=== PATIENT | female | born 1995 | race American Indian/Alaskan Native ===

== ENCOUNTER 2020-08-08 07:22 | Inpatient (IN) | payer MEDICAID, OTHER ==
[2020-08-08 08:03] LABS: Basophils # (Auto) 0.1 K/mm3 (0.0-0.1); Basophils % (Auto) 0.9 % (0.0-1.8); Eosinophils # (Auto) 0.2 K/mm3 (0.0-0.4); Eosinophils % (Auto) 1.6 % (0.0-4.3); Hematocrit 32.5 % (30.3-42.9); Hemoglobin 11.1 gm/dl (10.1-14.3); Lymphocytes # (Auto) 3.6 K/mm3 (1.2-5.4); Lymphocytes % (Auto) 29.7 % (13.4-35.0); Mean Corpuscular HGB Conc 34 % (30-34); Mean Corpuscular Volume 95 fl (79-97); Monocytes % (Auto) 8.1 % (0.0-7.3); Platelet Count 642 K/mm3 (140-440); Red Blood Count 3.44 M/mm3 (3.65-5.03); Red Cell Distribution Width 13.6 % (13.2-15.2)
[2020-08-08 08:23] LABS: Alanine Aminotransferase 13 units/L (7-56); Albumin 3.2 g/dL (3.9-5); Blood Urea Nitrogen 8 mg/dL (7-17); Calcium 8.7 mg/dL (8.4-10.2); Hemolysis Index 0
[2020-08-08 08:24] LABS: BUN/Creatinine Ratio 13
--- NOTE | 2020-08-08 08:58 | XRay Report ---
CHEST 2 VIEWS INDICATION / CLINICAL INFORMATION: chest pain. COMPARISON: None available. FINDINGS: SUPPORT DEVICES: None. HEART / MEDIASTINUM: No significant abnormality. LUNGS / PLEURA: Moderate right pleural parenchymal opacification at the lung bases. The left lung fie ld is clear. No pneumothorax. ADDITIONAL FINDINGS: No significant additional findings. IMPRESSION: 1. Moderate right-sided pleural effusion and associated compressive atelectasis. The left lung field is clear. Signer Name: Roque Swartz MD Signed: 08/08/2020 8:53 AM Workstation Name: [id number]
[2020-08-08] MEDS ORDERED: MORPHINE 4 MG/1 ML INJ IV ONE (09:18)
[2020-08-08] MEDS ORDERED: SODIUM CHLORIDE 0.9% 1000 ML 1,000 ML IV ONE (09:18)
[2020-08-08] MEDS ORDERED: ONDANSETRON 4 MG/2 ML INJ IV ONE (09:19)
[2020-08-08 10:08] LABS: Partial Thromboplastin Time 28.5 Sec. (24.2-36.6)
--- NOTE | 2020-08-08 11:15 | Cat Scan Report ---
CTA CHEST WITH CONTRAST INDICATION / CLINICAL INFORMATION: CP with SOB. TECHNIQUE: Axial CT images were obtained through the chest after injection of IV contrast. 3 plane MIP and/or 3D reconstructions were produced. All CT scans at this location are performed using CT dose reduction f or ALARA by means of automated exposure control. COMPARISON: Prior chest radiograph 08/08/2020. No prior CT chest. FINDINGS: PULMONARY ARTERIES: No pulmonary emboli. THORACIC AORTA: No significant abnormality. HEART: No significant abnormality. CORONARY ARTERIES: No significant calcification. MEDIASTINUM / SUMA: No significant abnormality. LUNGS/PLEURA: Moderate right pleural effusion with associated compressive atelectasis of the right priti ng base. There is a peripherally enhancing well-circumscribed air-fluid collection in the right lung base measuring 3 cm (series 3 image 314). Additional small consolidation with air bronchograms are no inessa in the anterior aspect of the right upper and middle lobes. No pneumothorax. ADDITIONAL FINDINGS: None. UPPER ABDOMEN: No acute findings. SKELETAL STRUCTURES: No significant osseous abnormality. No aggressive osseous lesions. IMPRESSION: 1. No CT evidence for pulmonary embolism. 2. Consolidations with air bronchograms in the anterior aspect of the right middle and upperadditiona l lobes, likely atelectasis. Well-circumscribed peripheral enhancing air-fluid collection at the righ t lung base measuring 3 cm concerning for empyema versus loculation of the pleural effusion. Correlat ion with lab values to exclude infection is recommended. 3. Moderate right pleural effusion and associated compressive atelectasis. Signer Name: Roque Swartz MD Signed: 08/08/2020 11:11 AM Workstation Name: [email or web address]
[2020-08-08] MEDS ORDERED: cefTRIAXone/NS 1 GM/50 ML 1 GM/50 ML BAG IV ONE (11:22)
[2020-08-08] MEDS ORDERED: VANCOMYCIN PHARMACY TO DOSE IV SCH (12:00)
--- NOTE | 2020-08-08 12:06 | Emergency Department Report ---
ED Chest Pain HPI - General Chief Complaint: Chest Pain Stated Complaint: SOB/ CHEST PAINS Time Seen by Provider: 08/08/20 08:55 Source: patient Mode of arrival: Stretcher Limitations: No Limitations - History of Present Illness Initial Comments: This is a 24-year-old female nontoxic, well nourished in appearance, no acute signs of distress presents to the ED with c/o of right sided chest pain and shortness of breath times several days. Patient stated has some radiation of pain to right sided back. Describes pain as sharp and aching. Worse with deep breaths. Patient stated has some nonproductive cough. Patient denies any hemoptysis, fever, chills, nausea, vomiting, headache, stiff neck, numbness, tingling, abdominal pain. Patient denies any recent travels or long car rides. Patient denies any recent surgeries or any sick contacts. Patient denies any drug allergies. Patient denies any significant past medical history. Patient denies taking contraceptives. MD Complaint: chest pain -: days(s) Pain Location: right chest Pain Radiation: none Severity: mild Severity scale (0 -10): 8 Quality: aching, sharp Consistency: constant Improves With: nothing Worsens With: nothing re: denies: nausea, vomting, diaphoresis, dyspnea, sense of impending doom Other Symptoms: cough. denies: fever, syncope, rash, acid taste in mouth, leg swelling, palpitations, burping Treatments Prior to Arrival: none Aspirin use within the Past 7 Days: (0) No - Related Data Home Medications Medication Instructions Recorded Confirmed Last Taken Pnv with Ca,No.72/Iron/FA 1 tab PO DAILY 09/21/13 09/21/13 09/20/13 13:00 [ Plus Tablet] 1 tab Previous Rx's Medication Instructions Recorded Last Taken Type Ferrous Sulfate [Feosol 325 MG tab] 325 mg PO TID #90 tablet 09/21/13 Unknown Rx Ibuprofen [Motrin 800 MG tab] 800 mg PO Q8H PRN #90 tablet 09/21/13 Unknown Rx Ondansetron [Zofran] 4 mg PO Q6HR PRN #20 tablet 08/27/14 Unknown Rx oxyCODONE /ACETAMINOPHEN [Percocet 1 tab PO Q6HR PRN #30 tablet 08/27/14 Unknown Rx 5/325 mg] Allergies Allergy/AdvReac Type Severity Reaction Status Date / Time No Known Allergies Allergy Verified 09/09/13 13:18 Heart Score - HEART Score History: Slightly suspicious EKG: Normal Age: < 45 Risk factors: No known risk factors Troponin: < normal limit HEART Score: 0 - EKG Read Time Time EKG Completed: 00:00 (see EKG ) EKG Read Time: 00:00 (see EKG ) ED Review of Systems ROS: Stated complaint: SOB/ CHEST PAINS Other details as noted in HPI Comment: All other systems reviewed and negative Constitutional: denies: chills, fever Eyes: denies: eye pain, eye discharge, vision change ENT: denies: ear pain, throat pain Respiratory: shortness of breath. denies: cough, wheezing Cardiovascular: chest pain. denies: palpitations, dyspnea on exertion, orthopnea, edema, syncope, paroxysmal nocturnal dyspnea Endocrine: no symptoms reported Gastrointestinal: denies: abdominal pain, nausea, diarrhea Genitourinary: denies: urgency, dysuria, discharge Musculoskeletal: denies: back pain, joint swelling, arthralgia Skin: denies: rash, lesions Neurological: denies: headache, weakness, paresthesias Psychiatric: denies: anxiety, depression Hematological/Lymphatic: denies: easy bleeding, easy bruising ED Past Medical Hx - Past Medical History Hx Hypertension: No Hx Congestive Heart Failure: No Hx Diabetes: No Hx Deep Vein Thrombosis: No Hx Renal Disease: No Hx Sickle Cell Disease: No Hx Seizures: No Hx Asthma: No Hx COPD: No Hx HIV: No - Surgical History Past Surgical History?: Yes Additional Surgical History: - Social History Smoking Status: Former Smoker Substance Use Type: Alcohol - Medications Home Medications: Home Medications Medication Instructions Recorded Confirmed Last Taken Type Ferrous Sulfate [Feosol 325 MG tab] 325 mg PO TID #90 tablet 09/21/13 Unknown Rx Ibuprofen [Motrin 800 MG tab] 800 mg PO Q8H PRN #90 tablet 09/21/13 Unknown Rx Pnv with Ca,No.72/Iron/FA 1 tab PO DAILY 09/21/13 09/21/13 09/20/13 13:00 History [ Plus Tablet] 1 tab Ondansetron [Zofran] 4 mg PO Q6HR PRN #20 tablet 08/27/14 Unknown Rx oxyCODONE /ACETAMINOPHEN [Percocet 1 tab PO Q6HR PRN #30 tablet 08/27/14 Unknown Rx 5/325 mg] ED Physical Exam - General Limitations: No Limitations General appearance: alert, in no apparent distress - Head Head exam: Present: atraumatic, normocephalic - Eye Eye exam: Present: normal appearance - Neck Neck exam: Present: normal inspection, full ROM. Absent: tenderness, meningismus, lymphadenopathy - Respiratory Respiratory exam: Present: decreased breath sounds (right lower lobe). Absent: respiratory distress, wheezes, rales, rhonchi, stridor, chest wall tenderness, accessory muscle use, prolonged expiratory - Cardiovascular Cardiovascular Exam: Present: regular rate, normal rhythm, tachycardia, normal heart sounds. Absent: irregular rhythm, systolic murmur, diastolic murmur, rubs, gallop - GI/Abdominal GI/Abdominal exam: Present: soft, normal bowel sounds. Absent: distended, tenderness, guarding, rebound, rigid, diminished bowel sounds - Extremities Exam Extremities exam: Present: normal inspection, full ROM - Back Exam Back exam: Present: normal inspection, full ROM. Absent: tenderness, CVA tenderness (R), CVA tenderness (L), muscle spasm, paraspinal tenderness, vertebral tenderness, rash noted - Neurological Exam Neurological exam: Present: alert, oriented X3, normal gait - Psychiatric Psychiatric exam: Present: normal affect, normal mood - Skin Skin exam: Present: warm, dry, intact, normal color. Absent: rash ED Course Vital Signs 08/08/20 08/08/20 08/08/20 07:27 09:59 11:43 Temperature 97.6 F 98.8 F Pulse Rate 103 H 104 H Respiratory 25 H 18 18 Rate Blood Pressure 159/75 121/78 O2 Sat by Pulse 96 93 Oximetry - Reevaluation(s) Reevaluation #1: 08/08/20 12:08 Patient is speaking in full sentences with no signs of distress noted. - Consultations Consultation #1: 08/08/20 12:08 Patient has been consulted with Brando Pickard about patient history, physical exam, and labs/imaging results and agrees to the ED plan of care with admission. Awaiting for Pulomnologist consult. Consultation #2: 08/08/20 13:08 Patient has been consulted with Dr. Gibbons by Dr. Wong about patient history, physical exam, and labs/imaging results and accepts patient to services. JUSTINA score - Justina Score Age > 65: (0) No Aspirin use within the Past 7 Days: (0) No 3 or more CAD Risk Factors: (0) No 2 or more Angina events in past 24 hrs: (0) No Known CAD with more than 50% Stenosis: (0) No Elevated Cardiac Markers: (0) No ST Deviation Greater than 0.5mm: (0) No JUSTINA Score: 0 ED Medical Decision Making - Lab Data Result diagrams: 08/08/20 07:40 08/08/20 07:40 Lab Results 08/08/20 08/08/20 08/08/20 Range/Units 07:40 07:40 07:40 WBC 12.2 H (4.5-11.0) K/mm3 RBC 3.44 L (3.65-5.03) M/mm3 Hgb 11.1 (10.1-14.3) gm/dl Hct 32.5 (30.3-42.9) % MCV 95 (79-97) fl MCH 32 (28-32) pg MCHC 34 (30-34) % RDW 13.6 (13.2-15.2) % Plt Count 642 H (140-440) K/mm3 Lymph % (Auto) 29.7 (13.4-35.0) % [place] % (Auto) 8.1 H (0.0-7.3) % Eos % (Auto) 1.6 (0.0-4.3) % Baso % (Auto) 0.9 (0.0-1.8) % Lymph # (Auto) 3.6 (1.2-5.4) K/mm3 [place] # (Auto) 1.0 H (0.0-0.8) K/mm3 Eos # (Auto) 0.2 (0.0-0.4) K/mm3 Baso # (Auto) 0.1 (0.0-0.1) K/mm3 Seg Neutrophils % 59.7 (40.0-70.0) % Seg Neutrophils # 7.3 (1.8-7.7) K/mm3 PT (12.2-14.9) Sec. INR (0.87-1.13) APTT (24.2-36.6) Sec. D-Dimer (0-234) ng/mlDDU Sodium 140 (137-145) mmol/L Potassium 3.9 (3.6-5.0) mmol/L Chloride 103.1 (98-107) mmol/L Carbon Dioxide 27 (22-30) mmol/L Anion Gap 14 mmol/L BUN 8 (7-17) mg/dL Creatinine 0.6 (0.6-1.2) mg/dL Estimated GFR > 60 ml/min BUN/Creatinine Ratio 13 % Glucose 143 H (65-100) mg/dL Lactic Acid (0.7-2.0) mmol/L Calcium 8.7 (8.4-10.2) mg/dL Magnesium (1.7-2.3) mg/dL Total Bilirubin 0.30 (0.1-1.2) mg/dL AST 16 (5-40) units/L ALT 13 (7-56) units/L Alkaline Phosphatase 71 (35-129) units/L Troponin T < 0.010 (0.00-0.029) ng/mL Total Protein 7.5 (6.3-8.2) g/dL Albumin 3.2 L (3.9-5) g/dL Albumin/Globulin Ratio 0.7 % HCG, Qual Negative (Negative) Urine Bilirubin (Negative) Urine RBC (Auto) (0.0-6.0) /HPF U Epithel Cells (Auto) (0-13.0) /HPF 08/08/20 08/08/20 08/08/20 Range/Units 09:38 09:38 11:30 WBC (4.5-11.0) K/mm3 RBC (3.65-5.03) M/mm3 Hgb (10.1-14.3) gm/dl Hct (30.3-42.9) % MCV (79-97) fl MCH (28-32) pg MCHC (30-34) % RDW (13.2-15.2) % Plt Count (140-440) K/mm3 Lymph % (Auto) (13.4-35.0) % [place] % (Auto) (0.0-7.3) % Eos % (Auto) (0.0-4.3) % Baso % (Auto) (0.0-1.8) % Lymph # (Auto) (1.2-5.4) K/mm3 [place] # (Auto) (0.0-0.8) K/mm3 Eos # (Auto) (0.0-0.4) K/mm3 Baso # (Auto) (0.0-0.1) K/mm3 Seg Neutrophils % (40.0-70.0) % Seg Neutrophils # (1.8-7.7) K/mm3 PT 13.1 (12.2-14.9) Sec. INR 1.00 (0.87-1.13) APTT 28.5 (24.2-36.6) Sec. D-Dimer 1888.67 H (0-234) ng/mlDDU Sodium (137-145) mmol/L Potassium (3.6-5.0) mmol/L Chloride (98-107) mmol/L Carbon Dioxide (22-30) mmol/L Anion Gap mmol/L BUN (7-17) mg/dL Creatinine (0.6-1.2) mg/dL Estimated GFR ml/min BUN/Creatinine Ratio % Glucose (65-100) mg/dL Lactic Acid 1.10 (0.7-2.0) mmol/L Calcium (8.4-10.2) mg/dL Magnesium 1.40 L (1.7-2.3) mg/dL Total Bilirubin (0.1-1.2) mg/dL AST (5-40) units/L ALT (7-56) units/L Alkaline Phosphatase (35-129) units/L Troponin T < 0.010 (0.00-0.029) ng/mL Total Protein (6.3-8.2) g/dL Albumin (3.9-5) g/dL Albumin/Globulin Ratio % HCG, Qual (Negative) Urine Bilirubin (Negative) Urine RBC (Auto) (0.0-6.0) /HPF U Epithel Cells (Auto) (0-13.0) /HPF 08/08/20 08/08/20 Range/Units 11:36 12:37 WBC (4.5-11.0) K/mm3 RBC (3.65-5.03) M/mm3 Hgb (10.1-14.3) gm/dl Hct (30.3-42.9) % MCV (79-97) fl MCH (28-32) pg MCHC (30-34) % RDW (13.2-15.2) % Plt Count (140-440) K/mm3 Lymph % (Auto) (13.4-35.0) % [place] % (Auto) (0.0-7.3) % Eos % (Auto) (0.0-4.3) % Baso % (Auto) (0.0-1.8) % Lymph # (Auto) (1.2-5.4) K/mm3 [place] # (Auto) (0.0-0.8) K/mm3 Eos # (Auto) (0.0-0.4) K/mm3 Baso # (Auto) (0.0-0.1) K/mm3 Seg Neutrophils % (40.0-70.0) % Seg Neutrophils # (1.8-7.7) K/mm3 PT (12.2-14.9) Sec. INR (0.87-1.13) APTT (24.2-36.6) Sec. D-Dimer (0-234) ng/mlDDU Sodium (137-145) mmol/L Potassium (3.6-5.0) mmol/L Chloride (98-107) mmol/L Carbon Dioxide (22-30) mmol/L Anion Gap mmol/L BUN (7-17) mg/dL Creatinine (0.6-1.2) mg/dL Estimated GFR ml/min BUN/Creatinine Ratio % Glucose (65-100) mg/dL Lactic Acid (0.7-2.0) mmol/L Calcium (8.4-10.2) mg/dL Magnesium (1.7-2.3) mg/dL Total Bilirubin (0.1-1.2) mg/dL AST (5-40) units/L ALT (7-56) units/L Alkaline Phosphatase (35-129) units/L Troponin T < 0.010 (0.00-0.029) ng/mL Total Protein (6.3-8.2) g/dL Albumin (3.9-5) g/dL Albumin/Globulin Ratio % HCG, Qual (Negative) Urine Bilirubin Neg (Negative) Urine RBC (Auto) 2.0 (0.0-6.0) /HPF U Epithel Cells (Auto) 10.0 (0-13.0) /HPF - EKG Data 08/08/20 13:09 Sinus rhythm at 93 bpm. Ventricular premature complex. No significant T or ST abnormalities. Reviewed and signed by . - Radiology Data 24-year-old female that presents with right pleural effusion. Patient is currently stable and was examined by me. Patient consulted with my attending and admitted with hospitalist for further elevation treatment. Diagnostic tests has been obtained. Patient is notified of the results with no questions noted by the patient. Vital signs are stable currently. At time of admission, the patient does not seem toxic or ill in appearance. No acute signs of distress noted. Patient agrees to admission treatment plan of care. No further qu estions noted by the patient. Critical care attestation.: If time is entered above; I have spent that time in minutes in the direct care of this critically ill patient, excluding procedure time. ED Disposition Clinical Impression: Pleural effusion, right Disposition: DC-09 OP ADMIT IP TO THIS HOSP Is pt being admited?: Yes Condition: Stable
[2020-08-08] MEDS: VANCOMYCIN 1,500 MG in SODIUM CHLORIDE 0.9% 500 ML 500 ML IV SCH ×2 (12:51→23:15)
[2020-08-08 13:04] LABS: Bilirubin,Urine NEG (Negative); Blood,Urine NEG (Negative); Color,Urine Yellow (Yellow); Mucus,Urine FEW /HPF; Protein,Urine <15 mg/dL mg/dL (Negative); Urobilinogen,Urine < 2.0 mg/dL (<2.0)
[2020-08-08 13:13] LABS: Amphetamine Screen,Urine Negative; Benzodiazepines Screen,Urine Negative; Cocaine Screen,Urine Negative; Methadone Screen,Urine Negative
--- NOTE | 2020-08-08 13:21 | History and Physical Report ---
History of Present Illness Chief complaint: My chest feels tight History of present illness: 24 YO Female with Anemia presents to ED for evaluation. Patient reports "my chest feels tight". Patient states that she has experienced shortness of breath and chest discomfort over the past 5 days with persistent symptoms over the same timeframe. Patient reports mild chest pain which radiates to the right back. Patient reports pain is worsened with deep breathing. Patient knowledges dry cough. Patient transported to [facility] via private vehicle for further care and evaluation of the aforementioned symptoms. The patient was seen and evaluated in the emergency department. All lab and imaging studies reviewed. Patient underwent chest x-ray as well as CT scan of the chest which showed evidence of a right lower lobe pneumonia complicated by right pleural effusion and possible empyema as well as systemic inflammatory response syndrome. Patient admitted to medical floor and initiated on pneumonia protocol and treated with IV antibiotic therapy. Pulmonary team consulted in ED. Patient denies fever, chills, chest pain, palpitation, productive cough, skin rash, recent ill contacts, unilateral leg swelling, calf pain, individual/family history of DVT/PE/bleeding/blood clotting disorders, or known exposure to COVID-19. No prior admission for review. All medication listed at time of admission has been reconciled. Past History Past Medical History: other (See HPI) Past Surgical History: Social history: single Family history: hypertension Medications and Allergies Allergies Allergy/AdvReac Type Severity Reaction Status Date / Time No Known Allergies Allergy Verified 09/09/13 13:18 Home Medications Medication Instructions Recorded Confirmed Last Taken Type Ferrous Sulfate [Feosol 325 MG tab] 325 mg PO TID #90 tablet 09/21/13 Unknown Rx Ibuprofen [Motrin 800 MG tab] 800 mg PO Q8H PRN #90 tablet 09/21/13 Unknown Rx Pnv with Ca,No.72/Iron/FA 1 tab PO DAILY 09/21/13 09/21/13 09/20/13 13:00 History [ Plus Tablet] 1 tab Ondansetron [Zofran] 4 mg PO Q6HR PRN #20 tablet 08/27/14 Unknown Rx oxyCODONE /ACETAMINOPHEN [Percocet 1 tab PO Q6HR PRN #30 tablet 08/27/14 Unkn own Rx 5/325 mg] Active Meds: Active Medications Vancomycin HCl 1,500 mg/ (Sodium Chloride) 530 mls @ 265 mls/hr IV Q12H [facility] Last Admin: 08/08/20 12:51 Dose: 265 mls/hr Documented by: Review of Systems Constitutional: weakness, no weight loss, no weight gain, no fever, no chills Ears, nose, mouth and throat: no ear pain, no ear discharge, no tinnitis, no decreased hearing, no nose pain, no nasal congestion Breasts: no change in shape, no swelling, no mass Cardiovascular: no orthopnea, no palpitations, no rapid/irregular heart beat, no edema Respiratory: cough, shortness of breath, pain on inspiration Gastrointestinal: no abdominal pain, no nausea, no diarrhea, no constipation, no change in bowel habits Genitourinary Female: no pelvic pain, no flank pain, no dysuria, no urinary frequency, no urgency Rectal: no pain, no incontinence, no bleeding Musculoskeletal: no neck stiffness, no neck pain, no shooting arm pain, no low back pain Integumentary: no rash, no pruritis, no redness, no sores, no wounds, no jaundice Neurological: no head injury, no transient paralysis, no weakness, no numbness, no tremors, no ataxia Psychiatric: no anxiety, no memory loss, no sleep disturbances, no hypersomnia, no change in libido Endocrine: no cold intolerance, no excessive thirst, no polydipsia, no polyuria, no nocturia Hematologic/Lymphatic: no easy bruising, no lymphadenopathy, no lymphedema Allergic/Immunologic: no wheezing, no anaphylaxis, no angioedema Exam - Constitutional Vitals: Temp Pulse Resp BP Pulse Ox 98.8 F 104 H 18 121/78 93 08/08/20 11:43 08/08/20 11:43 08/08/20 11:43 08/08/20 11:43 08/08/20 11:43 General appearance: Present: mild distress - EENT Eyes: Present: PERRL ENT: hearing intact, clear oral mucosa - Neck Neck: Present: supple, normal ROM - Respiratory Respiratory effort: normal Respiratory: right: diminished - Cardiovascular Heart Sounds: Present: S1 & S2. Absent: rub, click - Extremities Extremities: pulses symmetrical, No edema Peripheral Pulses: within normal limits - Abdominal General gastrointestinal: Present: soft, non-tender, non-distended, normal bowel sounds Female genitourinary: Present: normal - Integumentary Integumentary: Present: clear, warm, dry - Musculoskeletal Musculoskeletal: gait normal, strength equal bilaterally - Psychiatric Psychiatric: appropriate mood/affect, intact judgment & insight - Neurologic Neurologic: CNII-XII intact, moves all extremities HEART Score - HEART Score EKG: Normal Age: < 45 Risk factors: No known risk factors Troponin: Troponin T < 0.010 ng/mL (0.00-0.029) 08/08/20 11:36 Troponin: < normal limit Results - Labs CBC & Chem 7: 08/08/20 07:40 08/08/20 07:40 Labs: Abnormal lab results 08/08/20 08/08/20 08/08/20 Range/Units 07:40 07:40 09:38 WBC 12.2 H (4.5-11.0) K/mm3 RBC 3.44 L (3.65-5.03) M/mm3 Plt Count 642 H (140-440) K/mm3 [place] % (Auto) 8.1 H (0.0-7.3) % [place] # (Auto) 1.0 H (0.0-0.8) K/mm3 D-Dimer (0-234) ng/mlDDU Glucose 143 H (65-100) mg/dL Magnesium 1.40 L (1.7-2.3) mg/dL Albumin 3.2 L (3.9-5) g/dL 08/08/20 Range/Units 09:38 WBC (4.5-11.0) K/mm3 RBC (3.65-5.03) M/mm3 Plt Count (140-440) K/mm3 [place] % (Auto) (0.0-7.3) % [place] # (Auto) (0.0-0.8) K/mm3 D-Dimer 1888.67 H (0-234) ng/mlDDU Glucose (65-100) mg/dL Magnesium (1.7-2.3) mg/dL Albumin (3.9-5) g/dL Assessment and Plan - Patient Problems (1) Pneumonia Current Visit: Yes Status: Acute Qualifiers: Laterality: right Lung location: lower lobe of lung Plan to address problem: Pneumonia protocol: Chest x-ray, CT scan chest, IV antibiotic therapy, supplemental oxygen, pulse oximetry, nebulizer therapy, (2) Empyema Current Visit: Yes Status: Acute Plan to address problem: Pulmonology team consulted, supportive care. Further care management as per pulmonology team. (3) Systemic inflammatory response syndrome Current Visit: Yes Status: Acute Plan to address problem: CBC, CMP, IV antibiotic therapy, supportive care, rapid HIV, repeat CBC in a.m. (4) Pleural effusion, right Current Visit: Yes Status: Acute Plan to address problem: Pulmonology team consulted, chest x-ray, CT scan chest, further care and evaluation and treatment as per pulmonology team. (5) DVT prophylaxis Current Visit: Yes Status: Acute Plan to address problem: SCD to bilateral lower extremities while in bed, patient is ambulatory
[2020-08-08] MEDS ORDERED: ONDANSETRON 4 MG PO PRN (13:25)
[2020-08-08 13:26] LABS: Cannabinoid Screen,Urine Positive; Opiate Screen,Urine Positive
[2020-08-08] MEDS ORDERED: ALBUTEROL 2.5 MG/3 ML NEBU IH PRN (13:27)
--- NOTE | 2020-08-08 14:25 | Consultation ---
History of Present Illness Reason for consult: dyspnea, pneumonia, pleural effusion History of present illness: This is a 24 yo AAF w hx of recent strep throat who comes in w [facility]. She was treated for acute pharyngitis a week ago w amoxicillin and had progressive sob w pleurisy for the past 3 days. She rpeorts that this am she had waorsening pain and came to the er. In the er she was noted to have pleural effusion possible empyema. She reports pain, no sob or cough. No past pulm hx. Does have a smoking hx Past History Past Medical History: No medical history Social history: lives with family, smoking Family history: hypertension Medications and Allergies Allergies Allergy/AdvReac Type Severity Reaction Status Date / Time No Known Allergies Allergy Verified 09/09/13 13:18 Home Medications Medication Instructions Recorded Confirmed Last Taken Type Ferrous Sulfate [Feosol 325 MG tab] 325 mg PO TID #90 tablet 09/21/13 Unknown R x Ibuprofen [Motrin 800 MG tab] 800 mg PO Q8H PRN #90 tablet 09/21/13 Unknown Rx Pnv with Ca,No.72/Iron/FA 1 tab PO DAILY 09/21/13 09/21/13 09/20/13 13:00 History [ Plus Tablet] 1 tab Ondansetron [Zofran] 4 mg PO Q6HR PRN #20 tablet 08/27/14 Unknown Rx oxyCODONE /ACETAMINOPHEN [Percocet 1 tab PO Q6HR PRN #30 tablet 08/27/14 Unknown Rx 5/325 mg] Active Meds: Active Medications Acetaminophen (Acetaminophen 325 Mg Tab) 650 mg PO Q4H PRN PRN Reason: Pain MILD(1-3)/Fever >100.5/MELÉNDEZ Albuterol (Albuterol 2.5 Mg/3 Ml Nebu) 2.5 mg IH Q4HRT PRN PRN Reason: Shortness Of Breath Ferrous Sulfate (Ferrous Sulfate 325 Mg Tab) 325 mg PO TID BENNY Vancomycin HCl 1,500 mg/ (Sodium Chloride) 530 mls @ 265 mls/hr IV Q12H BENNY Last Admin: 08/08/20 12:51 Dose: 265 mls/hr Documented by: Levofloxacin/Dextrose (Levaquin 750mg/150ml) 750 mg in 150 mls @ 100 mls/hr IV Q24H BENNY; Protocol Ondansetron HCl (Ondansetron 4 Mg/2 Ml Inj) 4 mg IV Q8H PRN PRN Reason: Nausea And Vomiting Oxycodone/Acetaminophen (Oxycodone /Acetaminophen 5-325mg Tab) 1 tab PO Q6HR PRN PRN Reason: SEV PAIN Sodium Chloride (Sodium Chloride 0.9% 10 Ml Flush Syringe) 10 ml IV BID BENNY Sodium Chloride (Sodium Chloride 0.9% 10 Ml Flush Syringe) 10 ml IV PRN PRN PRN Reason: LINE FLUSH Review of Systems Constitutional: fatigue Respiratory: cough, pain on inspiration, other (strep throat) Physical Examination Vital signs: Vital Signs Temp Pulse Resp BP Pulse Ox 97.6 F 103 H 25 H 159/75 96 08/08/20 07:27 08/08/20 07:27 08/08/20 07:27 08/08/20 07:27 08/08/20 07:27 General appearance: no acute distress, alert ENT: oropharynx moist Neck: supple Effort: normal Ascultation: Right: diminished breath sounds Cardiovascular: regular rate and rhythm Gastrointestinal: normoactive bowel sounds, soft, non-tender Integumentary: normal Extremities: no cyanosis Musculoskeletal: no deformities Gait: normal gait normal mental status mood appropriate Results - Laboratory Findings CBC and BMP: 08/08/20 07:40 08/08/20 07:40 PT/INR, D-dimer PT 13.1 Sec. (12.2-14.9) 08/08/20 09:38 INR 1.00 (0.87-1.13) 08/08/20 09:38 D-Dimer 1888.67 ng/mlDDU (0-234) H 08/08/20 09:38 Abnormal lab findings: Abnormal Labs 08/08/20 08/08/20 08/08/20 07:40 07:40 09:38 WBC 12.2 H RBC 3.44 L Plt Count 642 H [place] % (Auto) 8.1 H [place] # (Auto) 1.0 H D-Dimer Glucose 143 H Magnesium 1.40 L Albumin 3.2 L 08/08/20 09:38 WBC RBC Plt Count [place] % (Auto) [place] # (Auto) D-Dimer 1888.67 H Glucose Magnesium Albumin - Diagnostic Findings Chest x-ray: report reviewed, image reviewed CT scan - chest: report reviewed, image reviewed (rt mod pleural eff w compressive atelectasis) Assessment and Plan - Patient Problems (1) Loculated pleural effusion Current Visit: Yes Status: Acute (2) Pneumonia Current Visit: Yes Status: Acute (3) Pleurisy with pleural effusion Current Visit: Yes Status: Acute (4) Pleural effusion, right Current Visit: Yes Status: Acute (5) Empyema lung Current Visit: Yes Status: Suspected
[2020-08-08] MEDS ORDERED: MORPHINE 2 MG/1 ML INJ IV ONE (15:00)
[2020-08-08] MEDS: FERROUS SULFATE 325 MG TAB PO SCH ×2 (15:06→23:15)
[2020-08-08] MEDS: ONDANSETRON 4 MG/2 ML INJ IV PRN (17:10)
[2020-08-08] MEDS ORDERED: PROCHLORPERAZINE EDISYLATE 10 MG/2 ML VIAL IV PRN (19:50)
[2020-08-08] MEDS: ACETAMINOPHEN 325 MG TAB PO PRN (20:26)
[2020-08-08] MEDS: PROCHLORPERAZINE EDISYLATE 10 MG/2 ML VIAL IV PRN (20:27)
[2020-08-09] MEDS: oxyCODONE /ACETAMINOPHEN 5-325MG TAB PO PRN ×2 (02:51→11:50)
[2020-08-09 08:43] LABS: Hematocrit 34.6 % (30.3-42.9); Hemoglobin 11.6 gm/dl (10.1-14.3); Mean Corpuscular HGB Conc 33 % (30-34); Mean Corpuscular Volume 94 fl (79-97); Platelet Count 627 K/mm3 (140-440); Red Blood Count 3.67 M/mm3 (3.65-5.03); Red Cell Distribution Width 13.4 % (13.2-15.2)
--- NOTE | 2020-08-09 09:57 | Progress Note ---
Assessment and Plan Assessment and plan: #Sepsis-POA Has leukocytosis, tachycardia and fever so meeting criteria for sepsis Secondary to pneumonia-rule out empyema Blood cultures pending Management as below #Pneumonia With parapneumonic effusion-rule out empyema Plan for right-sided thoracentesis. Check LDH, cell count, pH, protein, glucose , cytology. Pulmonology consulted On Levaquin and vancomycin. Added Flagyl for anaerobic coverage Consulted ID for antibiotics management Check HIV #Right-sided pleural effusion Management as per above #DVT prophylaxis-Heparin History Interval history: 08/09. Complains of pleuritic pain. Plan for ultrasound-guided thoracentesis. Patient may need a catheter placement. Pulmonology on board. Consulted ID for antibiotic management. Hospitalist Physical - Physical exam Narrative exam: VITAL SIGNS: Reviewed. GENERAL: Awake HEAD: No signs of head trauma. EYES: Pupils are equal. Extraocular motions intact. MOUTH: Oropharynx is normal. NECK: No adenopathy, no JVD. CHEST: Diminished BS on the right with rales CARDIAC: normal S1 and S2, without murmurs, gallops, or rubs. ABDOMEN: Soft, non tender and non distended. No rebound or guarding, and no masses palpated. Bowel Sounds normal. MUSCULOSKELETAL: No edema NEUROLOGIC EXAM: Alert and oriented x3. No focal neurologic deficits SKIN: No obvious lesions - Constitutional Vitals: Temp Pulse Resp BP Pulse Ox 99.0 F 98 H 17 107/62 89 08/09/20 04:32 08/09/20 04:32 08/09/20 04:32 08/09/20 04:32 08/09/20 04:32 HEART Score - HEART Score EKG: Normal Age: < 45 Risk factors: No known risk factors Troponin: Troponin T < 0.010 ng/mL (0.00-0.029) 08/08/20 11:36 Troponin: < normal limit Results - Labs CBC & Chem 7: 08/09/20 07:57 08/08/20 07:40 Labs: Laboratory Last Values WBC 24.2 K/mm3 (4.5-11.0) H 08/09/20 07:57 RBC 3.67 M/mm3 (3.65-5.03) 08/09/20 07:57 Hgb 11.6 gm/dl (10.1-14.3) 08/09/20 07:57 Hct 34.6 % (30.3-42.9) 08/09/20 07:57 MCV 94 fl (79-97) 08/09/20 07:57 MCH 32 pg (28-32) 08/09/20 07:57 MCHC 33 % (30-34) 08/09/20 07:57 RDW 13.4 % (13.2-15.2) 08/09/20 07:57 Plt Count 627 K/mm3 (140-440) H 08/09/20 07:57 Lymph % (Auto) 29.7 % (13.4-35.0) 08/08/20 07:40 [place] % (Auto) 8.1 % (0.0-7.3) H 08/08/20 07:40 Eos % (Auto) 1.6 % (0.0-4.3) 08/08/20 07:40 Baso % (Auto) 0.9 % (0.0-1.8) 08/08/20 07:40 Lymph # (Auto) 3.6 K/mm3 (1.2-5.4) 08/08/20 07:40 [place] # (Auto) 1.0 K/mm3 (0.0-0.8) H 08/08/20 07:40 Eos # (Auto) 0.2 K/mm3 (0.0-0.4) 08/08/20 07:40 Baso # (Auto) 0.1 K/mm3 (0.0-0.1) 08/08/20 07:40 Seg Neutrophils % 59.7 % (40.0-70.0) 08/08/20 07:40 Seg Neutrophils # 7.3 K/mm3 (1.8-7.7) 08/08/20 07:40 PT 13.1 Sec. (12.2-14.9) 08/08/20 09:38 INR 1.00 (0.87-1.13) 08/08/20 09:38 APTT 28.5 Sec. (24.2-36.6) 08/08/20 09:38 D-Dimer 1888.67 ng/mlDDU (0-234) H 08/08/20 09:38 Sodium 140 mmol/L (137-145) 08/08/20 07:40 Potassium 3.9 mmol/L (3.6-5.0) 08/08/20 07:40 Chloride 103.1 mmol/L (98-107) 08/08/20 07:40 Carbon Dioxide 27 mmol/L (22-30) 08/08/20 07:40 Anion Gap 14 mmol/L 08/08/20 07:40 BUN 8 mg/dL (7-17) 08/08/20 07:40 Creatinine 0.6 mg/dL (0.6-1.2) 08/08/20 07:40 Estimated GFR > 60 ml/min 08/08/20 07:40 BUN/Creatinine Ratio 13 % 08/08/20 07:40 Glucose 143 mg/dL (65-100) H 08/08/20 07:40 Lactic Acid 1.10 mmol/L (0.7-2.0) 08/08/20 11:30 Calcium 8.7 mg/dL (8.4-10.2) 08/08/20 07:40 Magnesium 1.40 mg/dL (1.7-2.3) L 08/08/20 09:38 Total Bilirubin 0.30 mg/dL (0.1-1.2) 08/08/20 07:40 AST 16 units/L (5-40) 08/08/20 07:40 ALT 13 units/L (7-56) 08/08/20 07:40 Alkaline Phosphatase 71 units/L (35-129) 08/08/20 07:40 Troponin T < 0.010 ng/mL (0.00-0.029) 08/08/20 11:36 Total Protein 7.5 g/dL (6.3-8.2) 08/08/20 07:40 Albumin 3.2 g/dL (3.9-5) L 08/08/20 07:40 Albumin/Globulin Ratio 0.7 % 08/08/20 07:40 HCG, Qual Negative (Negative) 08/08/20 07:40 Urine Color Yellow (Yellow) 08/08/20 12:37 Urine Turbidity Slightly-cloudy (Clear) 08/08/20 12:37 Urine pH 6.0 (5.0-7.0) 08/08/20 12:37 Ur Specific [place] 1.011 (1.003-1.030) 08/08/20 12:37 Urine Protein <15 mg/dl mg/dL (Negative) 08/08/20 12:37 Urine Glucose (UA) Neg mg/dL (Negative) 08/08/20 12:37 Urine Ketones Neg mg/dL (Negative) 08/08/20 12:37 Urine Blood Neg (Negative) 08/08/20 12:37 Urine Nitrite Neg (Negative) 08/08/20 12:37 Urine Bilirubin Neg (Negative) 08/08/20 12:37 Urine Urobilinogen < 2.0 mg/dL (<2.0) 08/08/20 12:37 Ur Leukocyte Esterase Neg (Negative) 08/08/20 12:37 Urine WBC (Auto) 4.0 /HPF (0.0-6.0) 08/08/20 12:37 Urine RBC (Auto) 2.0 /HPF (0.0-6.0) 08/08/20 12:37 U Epithel Cells (Auto) 10.0 /HPF (0-13.0) 08/08/20 12:37 Urine Mucus Few /HPF 08/08/20 12:37 Urine Opiates Screen Positive 08/08/20 12:37 Urine Methadone Screen Negative 08/08/20 12:37 Ur Barbiturates Screen Negative 08/08/20 12:37 Ur Phencyclidine Scrn Negative 08/08/20 12:37 Ur Amphetamines Screen Negative 08/08/20 12:37 U Benzodiazepines Scrn Negative 08/08/20 12:37 Urine Cocaine Screen Negative 08/08/20 12:37 U Marijuana (THC) Screen Positive 08/08/20 12:37 Drugs of Abuse Note Disclamer 08/08/20 12:37 Microbiology: Microbiology 08/08/20 11:36 Peripheral/Venous Blood Culture - Preliminary Culture in Progress 08/08/20 11:30 Peripheral/Venous Blood Culture - Preliminary Culture in Progress Booth/IV: Voiding Method Toilet Active Medications - Current Medications Current Medications: Generic Name Dose Route Start Last Admin Trade Name Freq PRN Reason Stop Dose Admin Acetaminophen 650 mg 08/08/20 13:27 08/08/20 20:26 Acetaminophen 325 Mg Tab PO 650 mg Q4H PRN Administration Pain MILD(1-3)/Fever >100.5/MELÉNDEZ Albuterol 2.5 mg 08/08/20 13:27 Albuterol 2.5 Mg/3 Ml Nebu IH Q4HRT PRN Shortness Of Breath Ferrous Sulfate 325 mg 08/08/20 14:00 08/08/20 23:15 Ferrous Sulfate 325 Mg Tab PO 325 mg TID BENNY Administration Vancomycin HCl 1,500 mg/ 530 mls @ 265 mls/hr 08/08/20 12:00 08/08/20 23:15 Sodium Chloride IV 265 mls/hr Q12H BENNY Administration Levofloxacin/Dextrose 750 mg in 150 mls @ 100 mls/hr 08/08/20 14:00 08/08/20 16:00 Levaquin 750mg/150ml IV 100 mls/hr Q24H BENNY Administration Protocol Ondansetron HCl 4 mg 08/08/20 13:27 08/08/20 17:10 Ondansetron 4 Mg/2 Ml Inj IV 4 mg Q8H PRN Administration Nausea And Vomiting Oxycodone/Acetaminophen 1 tab 08/08/20 13:25 08/09/20 02:51 Oxycodone /Acetaminophen 5-325mg Tab PO 1 tab Q6HR PRN Administration SEV PAIN Prochlorperazine Edisylate 10 mg 08/08/20 19:25 08/08/20 20:27 Prochlorperazine Edisylate 10 Mg/2 Ml Vial IV 10 mg Q6H PRN Administration Nausea And Vomiting Sodium Chloride 10 ml 08/08/20 22:00 08/08/20 23:15 Sodium Chloride 0.9% 10 Ml Flush Syringe IV 10 ml BID BENNY Administration Sodium Chloride 10 ml 08/08/20 13:27 Sodium Chloride 0.9% 10 Ml Flush Syringe IV PRN PRN LINE FLUSH
[2020-08-09] MEDS ORDERED: [UNRECOGNIZED DRUG - REMARK] PO SCH (10:00)
[2020-08-09 10:33] LABS: Band Neutrophils # (Manual) 0.5 K/mm3; Platelet Estimate Appears Decreased; Total Cells Counted 100
[2020-08-09] MEDS: FERROUS SULFATE 325 MG TAB PO SCH ×3 (11:06→19:35)
[2020-08-09] MEDS: metroNIDAZOLE/NS 500 MG/100 ML 500 MG/100 ML BAG IV SCH ×2 (11:06→19:31)
--- NOTE | 2020-08-09 11:50 | Event Note ---
Date: 08/09/20 Off floor for thora. Hopeful they will drain dry. Follow up culture and gram stain. If grain stain positive patient will need chest tube to drain space completely dry. Preferrably something larger than a 7french with a side port to administer TPA if needed. Hopeful lung will fully re-expand, if it doesnt, will need transfer as this hospital does not have thoracic surgery.
[2020-08-09] MEDS: VANCOMYCIN 1,500 MG in SODIUM CHLORIDE 0.9% 500 ML 500 ML IV SCH ×2 (12:52→23:31)
--- NOTE | 2020-08-09 12:56 | Procedure Note ---
Date of procedure: 08/09/20 Pre-op diagnosis: right pleural effusion Post-op diagnosis: same Procedure: US thoracentesis Findings: complex right pleural effusion Anesthesia: local Surgeon: PRICILA MENA Estimated blood loss: none Pathology: list (120cc) Specimen disposition: to lab Condition: stable Disposition: floor
--- NOTE | 2020-08-09 13:01 | Ultrasound Report ---
Ultrasound-guided thoracentesis HISTORY: rt effusion w loculation. COMPARISON: CT chest 08/08/2020 PROCEDURE: The risks (including but not limited to bleeding, infection, and pneumothorax) and benefi ts were explained to the patient and informed consent was obtained. A time out procedure was perform ed. Ultrasound was used to evaluate the right pleural effusion and locate the optimal site for needle ent ry. Once the skin was marked, the procedure site was prepped and draped in the usual sterile fashion and lidocaine was used for local anesthesia. A 5 [place] thoracentesis catheter was placed. The pat ient was monitored closely throughout the procedure, and a total of 500 mL of cloudy yellow fluid was aspirated. Samples were sent to the lab for further evaluation per the primary clinicians orders. The patient tolerated the procedure well with no complications. A post-procedure chest x-ray was imm ediately ordered. IMPRESSION: Successful ultrasound-guided right thoracentesis as described. Signer Name: Marcus Vanegas Jr, MD Signed: 08/09/2020 12:57 PM Workstation Name: [id number]
[2020-08-09 14:23] LABS: Total Cells Counted 100 /mm3
--- NOTE | 2020-08-09 14:25 | XRay Report ---
CHEST 1 VIEW 08/09/2020 12:17 PM INDICATION / CLINICAL INFORMATION: complex right pleural effusion, recent thora. COMPARISON: None available. FINDINGS: SUPPORT DEVICES: None. HEART / MEDIASTINUM: No significant abnormality. LUNGS / PLEURA: Diffuse patchy right lung with right lung effusion and fluid along the fissure. Small left effusion No pneumothorax. ADDITIONAL FINDINGS: No significant additional findings. IMPRESSION: 1. Bilateral pleural effusions slightly increased since prior examination. Opacity throughout the rig ht lung is slightly increased Signer Name: Matias Waddell MD Signed: 08/09/2020 2:21 PM Workstation Name: [id number]
--- NOTE | 2020-08-09 15:31 | Consultation ---
History of Present Illness - Reason for Consult Consult date: 08/09/20 - History of Present Illness 24-year-old female past medical history anemia presented to the hospital complaining of chest tightness. She complained of associated shortness of breath For 5 days and the symptoms are persistent since onset. She noted the pain was pleuritic and worsened with deep breathing. She also complains of dry cough. Febrile to 101.6 with a white count 24.2. Pleural fluid with 209 9 white cells blood cultures no growth so far. Currently on Levaquin and vancomycin Imaging personally reviewed: Chest CTA: No PE. Consolidations with air bronchograms air-fluid collection of the right lung base measuring 3 cm concerning for empyema versus loculation of pleural fluid Review of Systems: Bold if positive, otherwise negative General: fevers, chills, rigors HEENT: visual disturbance, diplopia, eye pain Respiratory: cough, sputum, hemoptysis, shortness of breath Cardiovascular: chest pain, syncope Gastrointestinal: nausea, vomiting, diarrhea, abdominal pain Genitourinary: dysuria, hematuria, flank pain Musculoskeletal: neck pain, back pain, joint pain, edema Neurologic: headaches, seizures Hematologic: easy bruising or bleeding Endocrine: night sweats, acute weight loss Skin: rash, jaundice, redness Psychiatric: suicidal, homicidal ideation Past History Past Medical History: other (See HPI) Past Surgical History: Social history: single Family history: hypertension Medications and Allergies Allergies Allergy/AdvReac Type Severity Reaction Status Date / Time No Known Allergies Allergy Verified 09/09/13 13:18 Home Medications Medication Instructions Recorded Confirmed Last Taken Type No Known Home Medications [No 08/08/20 08/08/20 Unknown History Reported Home Medications] Active Meds: Active Medications Acetaminophen (Acetaminophen 325 Mg Tab) 650 mg PO Q4H PRN PRN Reason: Pain MILD(1-3)/Fever >100.5/MELÉNDEZ Last Admin: 08/08/20 20:26 Dose: 650 mg Documented by: Albuterol (Albuterol 2.5 Mg/3 Ml Nebu) 2.5 mg IH Q4HRT PRN PRN Reason: Shortness Of Breath Ferrous Sulfate (Ferrous Sulfate 325 Mg Tab) 325 mg PO TID [facility] Last Admin: 08/09/20 12:59 Dose: 325 mg Documented by: Vancomycin HCl 1,500 mg/ (Sodium Chloride) 530 mls @ 265 mls/hr IV Q12H [facility] Last Admin: 08/09/20 12:52 Dose: 265 mls/hr Documented by: Levofloxacin/Dextrose (Levaquin 750mg/150ml) 750 mg in 150 mls @ 100 mls/hr IV Q24H [facility]; Protocol Last Admin: 08/08/20 16:00 Dose: 100 mls/hr Documented by: Metronidazole (Flagyl 500 Mg/100 Ml) 500 mg in 100 mls @ 100 mls/hr IV Q8H BENNY; Protocol Last Admin: 08/09/20 11:06 Dose: Not Given Documented by: Ondansetron HCl (Ondansetron 4 Mg/2 Ml Inj) 4 mg IV Q8H PRN PRN Reason: Nausea And Vomiting Last Admin: 08/08/20 17:10 Dose: 4 mg Documented by: Oxycodone/Acetaminophen (Oxycodone /Acetaminophen 5-325mg Tab) 1 tab PO Q6HR PRN PRN Reason: SEV PAIN Last Admin: 08/09/20 11:50 Dose: 1 tab Documented by: Prochlorperazine Edisylate (Prochlorperazine Edisylate 10 Mg/2 Ml Vial) 10 mg IV Q6H PRN PRN Reason: Nausea And Vomiting Last Admin: 08/08/20 20:27 Dose: 10 mg Documented by: Sodium Chloride (Sodium Chloride 0.9% 10 Ml Flush Syringe) 10 ml IV BID [facility] Last Admin: 08/09/20 12:52 Dose: 10 ml Documented by: Sodium Chloride (Sodium Chloride 0.9% 10 Ml Flush Syringe) 10 ml IV PRN PRN PRN Reason: LINE FLUSH Physical Examination - Physical Exam Narrative exam: Physical Exam: Constitutional: Alert, cooperative. No acute distress Head, Ears, Nose: Normocephalic, atraumatic. External ears, nose normal Eyes: Conjunctivae/corneas clear. No icterus. No ptosis. Neck: Supple, no meningeal signs Oral: dentition fair, no thrush Cardiovascular: S1, S2 normal. Respiratory: Good air entry, clear to auscultation bilaterally GI: Soft, non-tender; bowel sounds normal. No peritoneal signs. Musculoskeletal: No pedal edema, no cyanosis. Skin: No rash or abscess Hem/Lymphatic: No palpable cervical or supraclavicular nodes. No lymphangitis Psych: Mood ok. Affect normal Neurological: Awake, alert, oriented. No gross abnormality - Constitutional Vitals: Vital Signs Temp Pulse Resp BP Pulse Ox 101.6 F H 121 H 24 121/73 100 08/09/20 11:44 08/09/20 11:44 08/09/20 11:44 08/09/20 11:44 08/09/20 15:04 Temperature -Last 24 Hours Temperature 101.6 F Temperature 99.0 F Temperature 99.0 F Temperature 98.1 F Temperature 101.8 F Results - Labs CBC & Chem 7: 08/09/20 07:57 08/08/20 07:40 Labs: Abnormal lab results 08/09/20 Range/Units 07:57 WBC 24.2 H (4.5-11.0) K/mm3 Plt Count 627 H (140-440) K/mm3 Seg Neuts % (Manual) 88.0 H (40.0-70.0) % Lymphocytes % (Manual) 2.0 L (13.4-35.0) % Monocytes % (Manual) 8.0 H (0.0-7.3) % Seg Neutrophils # Man 21.3 H (1.8-7.7) K/mm3 Lymphocytes # (Manual) 0.5 L (1.2-5.4) K/mm3 Monocytes # (Manual) 1.9 H (0.0-0.8) K/mm3 Assessment and Plan Cultures: Blood culture 08/09/2020 no growth so far A/P: 24 yo F PMHx anemia presented to the hospital with concern for possible empyema. #Pleural effusion/empyema: cell count only 299 however 90% neutrophils. Awaiting culture result, though this is less concerning for an empyema. Will continue empiric antibiotics pending the culture given her fevers. Recs: -Continue empiric Levaquin and vancomycin for now. -MRSA nares screen -Ordered procalcitonin -Follow up thora cultures -Follow up remaining pending thora analysis cultures. Thank you for the consult, we will continue to follow. MD Naren Hightower [facility] O: [phone] F: [phone]
[2020-08-09] MEDS: PROCHLORPERAZINE EDISYLATE 10 MG/2 ML VIAL IV PRN (21:47)
[2020-08-09] MEDS: ACETAMINOPHEN 325 MG TAB PO PRN (21:57)
[2020-08-10] MEDS: metroNIDAZOLE/NS 500 MG/100 ML 500 MG/100 ML BAG IV SCH ×2 (01:30→11:03)
[2020-08-10 07:03] LABS: Hematocrit 30.6 % (30.3-42.9); Hemoglobin 10.1 gm/dl (10.1-14.3); Mean Corpuscular HGB Conc 33 % (30-34); Mean Corpuscular Volume 92 fl (79-97); Platelet Count 640 K/mm3 (140-440); Red Blood Count 3.33 M/mm3 (3.65-5.03); Red Cell Distribution Width 12.9 % (13.2-15.2)
[2020-08-10 07:16] LABS: Alanine Aminotransferase 14 units/L (7-56); Albumin 2.9 g/dL (3.9-5); Blood Urea Nitrogen 5 mg/dL (7-17); Calcium 8.8 mg/dL (8.4-10.2); Hemolysis Index 0
[2020-08-10 07:28] LABS: BUN/Creatinine Ratio 13
[2020-08-10 08:24] LABS: Band Neutrophils # (Manual) 0.3 K/mm3; Total Cells Counted 100
[2020-08-10 08:25] LABS: Anisocytosis 1+; Platelet Estimate Consistent w Auto; Toxic Granulation 1+; Toxic Vacuolation Few
--- NOTE | 2020-08-10 09:12 | Event Note ---
Date: 08/10/20 I suspect this to be either emphyema or complicated parapneumonic effusion. Both require chest tube drainage and space was not completely emptied on yesterday. I do not see a culture or a gram stain yet, hopeful this was done. None the less, would suggest consult to surgery for large bore chest tube placement for complete drainage of effusion. If lung does not re-expand with complete drainage post large bore chest tube placement, then will need transfer to a site that has thoracic surgery. Await remainder of PFA but I think those labs might be sendouts at this institution.
[2020-08-10] MEDS ORDERED: SODIUM CHLORIDE 0.9% 1000 ML 1,000 ML IV SCH (09:15)
--- NOTE | 2020-08-10 09:18 | Progress Note ---
Assessment and Plan Assessment and plan: #Sepsis secondary to pneumonia-POA Continue broad-spectrum antibiotics Status post thoracentesis with removal of 120 cc cloudy fluid. Preliminary result suggestive of exudative fluid Awaiting pleural fluid cultures Blood cultures pending ID on board Pulmonology on board Consulted general surgery for possible tube placement. May need thoracic surgery evaluation (needs transfer if this is the case) #Right-sided pleural effusion Management as per above #DVT prophylaxis-Heparin History Interval history: 24 YO Female with Anemia presents to ED for evaluation. Patient reports "my chest feels tight". Patient states that she has experienced shortness of breath and chest discomfort over the past 5 days with persistent symptoms over the same timeframe. Patient reports mild chest pain which radiates to the right back. Patient reports pain is worsened with deep breathing. Patient knowledges dry cough. Patient transported to [facility] via private vehicle for further care and evaluation of the aforementioned symptoms. The patient was seen and evaluated i n the emergency department. All lab and imaging studies reviewed. Patient underwent chest x-ray as well as CT scan of the chest which showed evidence of a right lower lobe pneumonia complicated by right pleural effusion and possible empyema as well as systemic inflammatory response syndrome. Patient admitted to medical floor and initiated on pneumonia protocol and treated with IV antibiotic therapy. Pulmonary team consulted in ED. Patient denies fever, chills, chest pain, palpitation, productive cough, skin rash, recent ill contacts, unilateral leg swelling, calf pain, individual/family history of DVT/PE/bleeding/blood clotting disorders, or known exposure to COVID-19. No prior admission for review. All medication listed at time of admission has been reconciled. Hospital course 08/09. Complains of pleuritic pain. Plan for ultrasound-guided thoracentesis. Patient may need a catheter placement. Pulmonology on board. Consulted ID for antibiotic management. 08/10. Patient had ultrasound-guided thoracentesis yesterday. Fluid-exudate. Remains on broad-spectrum antibiotics. ID on board. Patient had temperature 102 F overnight. Also has tachycardia. Repeat chest x-ray ordered. General surgery consulted for possible chest tube placement. Hospitalist Physical - Physical exam Narrative exam: VITAL SIGNS: Reviewed. GENERAL: Awake HEAD: No signs of head trauma. EYES: Pupils are equal. Extraocular motions intact. MOUTH: Oropharynx is normal. NECK: No adenopathy, no JVD. CHEST: Diminished BS on the right with rales CARDIAC: normal S1 and S2, without murmurs, gallops, or rubs. ABDOMEN: Soft, non tender and non distended. No rebound or guarding, and no masses palpated. Bowel Sounds normal. MUSCULOSKELETAL: No edema NEUROLOGIC EXAM: Alert and oriented x3. No focal neurologic deficits SKIN: No obvious lesions - Constitutional Vitals: Temp Pulse Resp BP Pulse Ox 99.0 F 118 H 16 129/74 92 08/10/20 04:11 08/10/20 04:11 08/10/20 04:11 08/10/20 04:11 08/10/20 04:11 HEART Score - HEART Score EKG: Normal Age: < 45 Risk factors: No known risk factors Troponin: Troponin T < 0.010 ng/mL (0.00-0.029) 08/08/20 11:36 Troponin: < normal limit Results - Labs CBC & Chem 7: 08/10/20 06:42 08/10/20 06:42 Labs: Laboratory Last Values WBC 29.1 K/mm3 (4.5-11.0) H 08/10/20 06:42 RBC 3.33 M/mm3 (3.65-5.03) L 08/10/20 06:42 Hgb 10.1 gm/dl (10.1-14.3) 08/10/20 06:42 Hct 30.6 % (30.3-42.9) 08/10/20 06:42 MCV 92 fl (79-97) 08/10/20 06:42 MCH 30 pg (28-32) 08/10/20 06:42 MCHC 33 % (30-34) 08/10/20 06:42 RDW 12.9 % (13.2-15.2) L 08/10/20 06:42 Plt Count 640 K/mm3 (140-440) H 08/10/20 06:42 Lymph % (Auto) 29.7 % (13.4-35.0) 08/08/20 07:40 [place] % (Auto) 8.1 % (0.0-7.3) H 08/08/20 07:40 Eos % (Auto) 1.6 % (0.0-4.3) 08/08/20 07:40 Baso % (Auto) 0.9 % (0.0-1.8) 08/08/20 07:40 Lymph # (Auto) 3.6 K/mm3 (1.2-5.4) 08/08/20 07:40 [place] # (Auto) 1.0 K/mm3 (0.0-0.8) H 08/08/20 07:40 Eos # (Auto) 0.2 K/mm3 (0.0-0.4) 08/08/20 07:40 Baso # (Auto) 0.1 K/mm3 (0.0-0.1) 08/08/20 07:40 Add Manual Diff Complete 08/10/20 06:42 Total Counted 100 08/10/20 06:42 Seg Neutrophils % 59.7 % (40.0-70.0) 08/08/20 07:40 Seg Neuts % (Manual) 91.0 % (40.0-70.0) H 08/10/20 06:42 Band Neutrophils % 1.0 % 08/10/20 06:42 Lymphocytes % (Manual) 4.0 % (13.4-35.0) L 08/10/20 06:42 Monocytes % (Manual) 4.0 % (0.0-7.3) 08/10/20 06:42 Nucleated RBC % Not Reportable 08/10/20 06:42 Seg Neutrophils # 7.3 K/mm3 (1.8-7.7) 08/08/20 07:40 Seg Neutrophils # Man 26.5 K/mm3 (1.8-7.7) H 08/10/20 06:42 Band Neutrophils # 0.3 K/mm3 08/10/20 06:42 Lymphocytes # (Manual) 1.2 K/mm3 (1.2-5.4) 08/10/20 06:42 Abs React Lymphs (Man) 0.0 K/mm3 08/10/20 06:42 Monocytes # (Manual) 1.2 K/mm3 (0.0-0.8) H 08/10/20 06:42 Eosinophils # (Manual) 0.0 K/mm3 (0.0-0.4) 08/10/20 06:42 Basophils # (Manual) 0.0 K/mm3 (0.0-0.1) 08/10/20 06:42 Metamyelocytes # 0.0 K/mm3 08/10/20 06:42 Myelocytes # 0.0 K/mm3 08/10/20 06:42 Promyelocytes # 0.0 K/mm3 08/10/20 06:42 Blast Cells # 0.0 K/mm3 08/10/20 06:42 WBC Morphology Not Reportable 08/10/20 06:42 Hypersegmented Neuts Not Reportable 08/10/20 06:42 Hyposegmented Neuts Not Reportable 08/10/20 06:42 Hypogranular Neuts Not Reportable 08/10/20 06:42 Smudge Cells Not Reportable 08/10/20 06:42 Toxic Granulation 1+ 08/10/20 06:42 Toxic Vacuolation Few 08/10/20 06:42 Dohle Bodies Not Reportable 08/10/20 06:42 Pelger-Huet Anomaly Not Reportable 08/10/20 06:42 Lorri Rods Not Reportable 08/10/20 06:42 Platelet Estimate Consistent w auto 08/10/20 06:42 Clumped Platelets Not Reportable 08/10/20 06:42 Plt Clumps, EDTA Not Reportable 08/10/20 06:42 Large Platelets Not Reportable 08/10/20 06:42 Giant Platelets Not Reportable 08/10/20 06:42 Platelet Satelliting Not Reportable 08/10/20 06:42 Plt Morphology Comment Not Reportable 08/10/20 06:42 RBC Morphology Not Reportable 08/10/20 06:42 Dimorphic RBCs Not Reportable 08/10/20 06:42 Polychromasia Not Reportable 08/10/20 06:42 Hypochromasia Not Reportable 08/10/20 06:42 Poikilocytosis Not Reportable 08/10/20 06:42 Anisocytosis 1+ 08/10/20 06:42 Microcytosis Not Reportable 08/10/20 06:42 Macrocytosis Not Reportable 08/10/20 06:42 Spherocytes Not Reportable 08/10/20 06:42 Pappenheimer Bodies Not Reportable 08/10/20 06:42 Sickle Cells Not Reportable 08/10/20 06:42 Target Cells Not Reportable 08/10/20 06:42 Tear Drop Cells Not Reportable 08/10/20 06:42 Ovalocytes Not Reportable 08/10/20 06:42 Helmet Cells Not Reportable 08/10/20 06:42 [place] Bodies Not Reportable 08/10/20 06:42 [place] Rings Not Reportable 08/10/20 06:42 [place] Cells Not Reportable 08/10/20 06:42 Bite Cells Not Reportable 08/10/20 06:42 Crenated Cell Not Reportable 08/10/20 06:42 Elliptocytes Not Reportable 08/10/20 06:42 Acanthocytes (Spur) Not Reportable 08/10/20 06:42 Rouleaux Not Reportable 08/10/20 06:42 Hemoglobin C Crystals Not Reportable 08/10/20 06:42 Schistocytes Not Reportable 08/10/20 06:42 Malaria parasites Not Reportable 08/10/20 06:42 Tigre Bodies Not Reportable 08/10/20 06:42 Hem Pathologist Commnt No 08/10/20 06:42 PT 13.1 Sec. (12.2-14.9) 08/08/20 09:38 INR 1.00 (0.87-1.13) 08/08/20 09:38 APTT 28.5 Sec. (24.2-36.6) 08/08/20 09:38 D-Dimer 1888.67 ng/mlDDU (0-234) H 08/08/20 09:38 Sodium 136 mmol/L (137-145) L 08/10/20 06:42 Potassium 3.0 mmol/L (3.6-5.0) L D 08/10/20 06:42 Chloride 99.8 mmol/L (98-107) 08/10/20 06:42 Carbon Dioxide 27 mmol/L (22-30) 08/10/20 06:42 Anion Gap 12 mmol/L 08/10/20 06:42 BUN 5 mg/dL (7-17) L 08/10/20 06:42 Creatinine 0.4 mg/dL (0.6-1.2) L 08/10/20 06:42 Estimated GFR > 60 ml/min 08/10/20 06:42 BUN/Creatinine Ratio 13 % 08/10/20 06:42 Glucose 132 mg/dL (65-100) H 08/10/20 06:42 Lactic Acid 1.10 mmol/L (0.7-2.0) 08/08/20 11:30 Calcium 8.8 mg/dL (8.4-10.2) 08/10/20 06:42 Magnesium 1.40 mg/dL (1.7-2.3) L 08/08/20 09:38 Total Bilirubin 0.50 mg/dL (0.1-1.2) 08/10/20 06:42 AST 15 units/L (5-40) 08/10/20 06:42 ALT 14 units/L (7-56) 08/10/20 06:42 Alkaline Phosphatase 86 units/L (35-129) 08/10/20 06:42 Troponin T < 0.010 ng/mL (0.00-0.029) 08/08/20 11:36 C-Reactive Protein 34.00 mg/dL (0.00-1.30) H 08/10/20 06:42 Total Protein 6.9 g/dL (6.3-8.2) 08/10/20 06:42 Albumin 2.9 g/dL (3.9-5) L 08/10/20 06:42 Albumin/Globulin Ratio 0.7 % 08/10/20 06:42 HCG, Qual Negative (Negative) 08/08/20 07:40 Urine Color Yellow (Yellow) 08/08/20 12:37 Urine Turbidity Slightly-cloudy (Clear) 08/08/20 12:37 Urine pH 6.0 (5.0-7.0) 08/08/20 12:37 Ur Specific [place] 1.011 (1.003-1.030) 08/08/20 12:37 Urine Protein <15 mg/dl mg/dL (Negative) 08/08/20 12:37 Urine Glucose (UA) Neg mg/dL (Negative) 08/08/20 12:37 Urine Ketones Neg mg/dL (Negative) 08/08/20 12:37 Urine Blood Neg (Negative) 08/08/20 12:37 Urine Nitrite Neg (Negative) 08/08/20 12:37 Urine Bilirubin Neg (Negative) 08/08/20 12:37 Urine Urobilinogen < 2.0 mg/dL (<2.0) 08/08/20 12:37 Ur Leukocyte Esterase Neg (Negative) 08/08/20 12:37 Urine WBC (Auto) 4.0 /HPF (0.0-6.0) 08/08/20 12:37 Urine RBC (Auto) 2.0 /HPF (0.0-6.0) 08/08/20 12:37 U Epithel Cells (Auto) 10.0 /HPF (0-13.0) 08/08/20 12:37 Urine Mucus Few /HPF 08/08/20 12:37 Fluid Type Pleural 08/09/20 11:30 Fluid Color Yellow 08/09/20 11:30 Fluid Appearance Cloudy 08/09/20 11:30 Fluid WBC 299 /mm3 08/09/20 11:30 Fluid RBC 1500 /mm3 08/09/20 11:30 Fluid Seg Neutrophils 90.0 % 08/09/20 11:30 Fluid Lymphocytes 4.0 % 08/09/20 11:30 Fluid Monocytes 5.0 % 08/09/20 11:30 Fluid Eosinophils 1.0 % 08/09/20 11:30 Urine Opiates Screen Positive 08/08/20 12:37 Urine Methadone Screen Negative 08/08/20 12:37 Ur Barbiturates Screen Negative 08/08/20 12:37 Ur Phencyclidine Scrn Negative 08/08/20 12:37 Ur Amphetamines Screen Negative 08/08/20 12:37 U Benzodiazepines Scrn Negative 08/08/20 12:37 Urine Cocaine Screen Negative 08/08/20 12:37 U Marijuana (THC) Screen Positive 08/08/20 12:37 Drugs of Abuse Note Disclamer 08/08/20 12:37 Microbiology: Microbiology 08/08/20 11:36 Peripheral/Venous Blood Culture - Preliminary NO GROWTH AFTER 24 HOURS 08/08/20 11:30 Peripheral/Venous Blood Culture - Preliminary NO GROWTH AFTER 24 HOURS Booth/IV: Voiding Method Toilet Active Medications - Current Medications Current Medications: Generic Name Dose Route Start Last Admin Trade Name Freq PRN Reason Stop Dose Admin Acetaminophen 650 mg 08/08/20 13:27 08/09/20 21:57 Acetaminophen 325 Mg Tab PO 650 mg Q4H PRN Administration Pain MILD(1-3)/Fever >100.5/MELÉNDEZ Albuterol 2.5 mg 08/08/20 13:27 Albuterol 2.5 Mg/3 Ml Nebu IH Q4HRT PRN Shortness Of Breath Ferrous Sulfate 325 mg 08/08/20 14:00 08/09/20 19:35 Ferrous Sulfate 325 Mg Tab PO 325 mg TID BENNY Administration Vancomycin HCl 1,500 mg/ 530 mls @ 265 mls/hr 08/08/20 12:00 08/09/20 23:31 Sodium Chloride IV 265 mls/hr Q12H BENNY Administration Levofloxacin/Dextrose 750 mg in 150 mls @ 100 mls/hr 08/08/20 14:00 08/09/20 18:16 Levaquin 750mg/150ml IV 100 mls/hr Q24H BENNY Administration Protocol Metronidazole 500 mg in 100 mls @ 100 mls/hr 08/09/20 10:00 08/10/20 01:30 Flagyl 500 Mg/100 Ml IV 100 mls/hr Q8H BENNY Administration Protocol Ondansetron HCl 4 mg 08/08/20 13:27 08/08/20 17:10 Ondansetron 4 Mg/2 Ml Inj IV 4 mg Q8H PRN Administration Nausea And Vomiting Oxycodone/Acetaminophen 1 tab 08/08/20 13:25 08/09/20 11:50 Oxycodone /Acetaminophen 5-325mg Tab PO 1 tab Q6HR PRN Administration SEV PAIN Prochlorperazine Edisylate 10 mg 08/08/20 19:25 08/09/20 21:47 Prochlorperazine Edisylate 10 Mg/2 Ml Vial IV 10 mg Q6H PRN Administration Nausea And Vomiting Sodium Chloride 10 ml 08/08/20 22:00 08/09/20 21:47 Sodium Chloride 0.9% 10 Ml Flush Syringe IV 10 ml BID BENNY Administration Sodium Chloride 10 ml 08/08/20 13:27 Sodium Chloride 0.9% 10 Ml Flush Syringe IV PRN PRN LINE FLUSH
--- NOTE | 2020-08-10 09:52 | XRay Report ---
Chest single view INDICATION: Chest pain IMPRESSION: A large right-sided pleural effusion and patchy bibasilar airspace opacity within the lilibeth g bases are unchanged from the prior exam yesterday. Signer Name: Rigo Peralta MD Signed: 08/10/2020 9:48 AM Workstation Name: [id number]
--- NOTE | 2020-08-10 10:20 | Electrocardiograph Report ---
[facility] Test Date: 2020-08-09 Test Time: 06:46:53 Pat Name: KRIS DAVIS Department: Room: A384 1 Gender: F Accounts Collector: JEREMIAH : 1995 Requested By: OFELIA GONZALES Order Number: [id number] Reading MD: Efrain Frye Measurements Intervals [place] Rate: 106 P: 49 SD: 139 QRS: 73 QRSD: 79 T: -5 QT: 312 QTc: 415 Interpretive Statements Sinus tachycardia Borderline T abnormalities, diffuse leads Compared to ECG 08/08/2020 07:34:42 T-wave abnormality now present Sinus rhythm no longer present Ventricular premature complex(es) no longer present Electronically Signed On 08-10-2020 10:20:25 EDT by Efrain Frye
[2020-08-10] MEDS: FERROUS SULFATE 325 MG TAB PO SCH ×2 (11:03→14:35)
[2020-08-10] MEDS: ONDANSETRON 4 MG/2 ML INJ IV PRN (11:18)
--- NOTE | 2020-08-10 14:25 | Progress Note ---
Assessment and Plan Cultures: Blood culture 08/09/2020 no growth so far Procalcitonin 2.22 A/P: 24 yo F PMHx anemia presented to the hospital with concern for possible empyema. #Acute sepsis: present with fevers and leukocytosis. Secondary to parapneumonic effusion/empyema #Pleural effusion/empyema: cell count only 299 however 90% neutrophils. Awaiting culture result, probably parapneumonic effusion. Given septic picture continue empiric antibiotics. Agree with pulm plans for chest tube Recs: -Continue empiric Levaquin and vancomycin for now. -MRSA nares screen -Follow up thora cultures (hopefully sent, if not please obtain from chest tube) -Follow up remaining pending thora analysis cultures. Thank you for the consult, we will continue to follow. Lissette Baldwin MD [facility] ([facility]) O: [phone] F: [phone] Subjective Date of service: 08/10/20 Interval history: Febrile with elevated white count of 25. No acute changes today. Objective - Exam Narrative Exam: Physical Exam: Constitutional: Alert, cooperative. No acute distress Head, Ears, Nose: Normocephalic, atraumatic. External ears, nose normal Eyes: Conjunctivae/corneas clear. No icterus. No ptosis. Neck: Supple, no meningeal signs Oral: dentition fair, no thrush Cardiovascular: S1, S2 normal. Respiratory: Good air entry, clear to auscultation bilaterally GI: Soft, non-tender; bowel sounds normal. No peritoneal signs. Musculoskeletal: No pedal edema, no cyanosis. Skin: No rash or abscess Hem/Lymphatic: No palpable cervical or supraclavicular nodes. Psych: Mood ok. Affect normal Neurological: Awake, alert, oriented. No gross abnormality - Constitutional Vitals: Vital Signs Temp Pulse Resp BP Pulse Ox 99.0 F 118 H 16 129/74 92 08/10/20 04:11 08/10/20 04:11 08/10/20 04:11 08/10/20 04:11 08/10/20 04:11 Temperature -Last 24 Hours Temperature 99.0 F Temperature 99.2 F Temperature 101.8 F Temperature 99.6 F - Labs CBC & Chem 7: 08/10/20 06:42 08/10/20 06:42 Labs: Abnormal lab results 08/10/20 08/10/20 08/10/20 Range/Units 06:42 06:42 06:42 WBC 29.1 H (4.5-11.0) K/mm3 RBC 3.33 L (3.65-5.03) M/mm3 RDW 12.9 L (13.2-15.2) % Plt Count 640 H (140-440) K/mm3 Seg Neuts % (Manual) 91.0 H (40.0-70.0) % Lymphocytes % (Manual) 4.0 L (13.4-35.0) % Seg Neutrophils # Man 26.5 H (1.8-7.7) K/mm3 Monocytes # (Manual) 1.2 H (0.0-0.8) K/mm3 Sodium 136 L (137-145) mmol/L Potassium 3.0 L D (3.6-5.0) mmol/L BUN 5 L (7-17) mg/dL Creatinine 0.4 L (0.6-1.2) mg/dL Glucose 132 H (65-100) mg/dL C-Reactive Protein 34.00 H (0.00-1.30) mg/dL Albumin 2.9 L (3.9-5) g/dL
[2020-08-10] MEDS: oxyCODONE /ACETAMINOPHEN 5-325MG TAB PO PRN (14:34)
--- NOTE | 2020-08-10 15:32 | Consultation ---
History of Present Illness Consult date: 08/10/20 Chief complaint: Chest pain - History of present illness History of present illness: 24-year-old female with a past medical history of anemia who presented to the emergency room with pain in her right chest. The patient had been treated recently for pharyngitis with antibiotics. She progressively developed chest pain and increasing shortness of breath. This prompted her to come to the emergency room. Work-up in the emergency room revealed a right lower lobe pneumonia with right pleural effusion. The patient underwent thoracentesis with drainage of 500 cc of cloudy appearing fluid. A CT scan chest revealed a loculated right pleural effusion, possible empyema. Repeat chest x-ray show persistent right pleural effusion. The patient has been febrile. She complains of mild chest tightness. She denies shortness of b reath. She states she feels better after thoracentesis. Surgery is consulted for persistent right pleural effusion, possible placement of chest tube. Past History Past Medical History: other (See HPI) Past Surgical History: Social history: single Family history: hypertension Medications and Allergies Allergies Allergy/AdvReac Type Severity Reaction Status Date / Time No Known Allergies Allergy Verified 09/09/13 13:18 Home Medications Medication Instructions Recorded Confirmed Last Taken Type No Known Home Medications [No 08/08/20 08/08/20 Unknown History Reported Home Medications] Active Meds: Active Medications Acetaminophen (Acetaminophen 325 Mg Tab) 650 mg PO Q4H PRN PRN Reason: Pain MILD(1-3)/Fever >100.5/MELÉNDEZ Last Admin: 08/09/20 21:57 Dose: 650 mg Documented by: Albuterol (Albuterol 2.5 Mg/3 Ml Nebu) 2.5 mg IH Q4HRT PRN PRN Reason: Shortness Of Breath Ferrous Sulfate (Ferrous Sulfate 325 Mg Tab) 325 mg PO TID BENNY Last Admin: 08/10/20 11:03 Dose: 325 mg Documented by: Vancomycin HCl 1,500 mg/ (Sodium Chloride) 530 mls @ 265 mls/hr IV Q12H BENNY Last Admin: 08/09/20 23:31 Dose: 265 mls/hr Documented by: Levofloxacin/Dextrose (Levaquin 750mg/150ml) 750 mg in 150 mls @ 100 mls/hr IV Q24H BENNY; Protocol Last Admin: 08/09/20 18:16 Dose: 100 mls/hr Documented by: Metronidazole (Flagyl 500 Mg/100 Ml) 500 mg in 100 mls @ 100 mls/hr IV Q8H BENNY; Protocol Last Admin: 08/10/20 11:03 Dose: 100 mls/hr Documented by: Sodium Chloride (Nacl 0.9% 1000 Ml) 1,000 mls @ 42 mls/hr IV DIRECT BENNY Last Admin: 08/10/20 11:04 Dose: 42 mls/hr Documented by: Ondansetron HCl (Ondansetron 4 Mg/2 Ml Inj) 4 mg IV Q8H PRN PRN Reason: Nausea And Vomiting Last Admin: 08/10/20 11:18 Dose: 4 mg Documented by: Oxycodone/Acetaminophen (Oxycodone /Acetaminophen 5-325mg Tab) 1 tab PO Q6HR PRN PRN Reason: SEV PAIN Last Admin: 08/09/20 11:50 Dose: 1 tab Documented by: Prochlorperazine Edisylate (Prochlorperazine Edisylate 10 Mg/2 Ml Vial) 10 mg IV Q6H PRN PRN Reason: Nausea And Vomiting Last Admin: 08/09/20 21:47 Dose: 10 mg Documented by: Sodium Chloride (Sodium Chloride 0.9% 10 Ml Flush Syringe) 10 ml IV BID BENNY Last Admin: 08/10/20 11:03 Dose: 10 ml Documented by: Sodium Chloride (Sodium Chloride 0.9% 10 Ml Flush Syringe) 10 ml IV PRN PRN PRN Reason: LINE FLUSH Review of Systems All systems: negative (10 point ROS performed and negative except for that listed in HPI) Exam Vital Signs Temp Pulse Resp BP Pulse Ox 97.6 F 103 H 25 H 159/75 96 08/08/20 07:27 08/08/20 07:27 08/08/20 07:27 08/08/20 07:27 08/08/20 07:27 Narrative exam: Gen.: Awake, alert, oriented x3. No apparent distress ENT: Trachea midline. No lymphadenopathy. No scleral icterus or conjunctival pallor CV: S1, S2 present Respiratory: No audible wheezes Extremities: No clubbing, cyanosis, edema Results - Labs 08/10/20 06:42 08/10/20 06:42 Abnormal lab results 08/10/20 08/10/20 08/10/20 Range/Units 06:42 06:42 06:42 WBC 29.1 H (4.5-11.0) K/mm3 RBC 3.33 L (3.65-5.03) M/mm3 RDW 12.9 L (13.2-15.2) % Plt Count 640 H (140-440) K/mm3 Seg Neuts % (Manual) 91.0 H (40.0-70.0) % Lymphocytes % (Manual) 4.0 L (13.4-35.0) % Seg Neutrophils # Man 26.5 H (1.8-7.7) K/mm3 Monocytes # (Manual) 1.2 H (0.0-0.8) K/mm3 Sodium 136 L (137-145) mmol/L Potassium 3.0 L D (3.6-5.0) mmol/L BUN 5 L (7-17) mg/dL Creatinine 0.4 L (0.6-1.2) mg/dL Glucose 132 H (65-100) mg/dL C-Reactive Protein 34.00 H (0.00-1.30) mg/dL Albumin 2.9 L (3.9-5) g/dL Diabetes panel 08/10/20 Range/Units 06:42 Sodium 136 L (137-145) mmol/L Potassium 3.0 L D (3.6-5.0) mmol/L Chloride 99.8 (98-107) mmol/L Carbon Dioxide 27 (22-30) mmol/L BUN 5 L (7-17) mg/dL Creatinine 0.4 L (0.6-1.2) mg/dL Glucose 132 H (65-100) mg/dL Calcium 8.8 (8.4-10.2) mg/dL AST 15 (5-40) units/L ALT 14 (7-56) units/L Alkaline Phosphatase 86 (35-129) units/L Total Protein 6.9 (6.3-8.2) g/dL Albumin 2.9 L (3.9-5) g/dL Calcium panel 08/10/20 Range/Units 06:42 Calcium 8.8 (8.4-10.2) mg/dL Albumin 2.9 L (3.9-5) g/dL Pituitary panel 08/10/20 Range/Units 06:42 Sodium 136 L (137-145) mmol/L Potassium 3.0 L D (3.6-5.0) mmol/L Chloride 99.8 (98-107) mmol/L Carbon Dioxide 27 (22-30) mmol/L BUN 5 L (7-17) mg/dL Creatinine 0.4 L (0.6-1.2) mg/dL Glucose 132 H (65-100) mg/dL Calcium 8.8 (8.4-10.2) mg/dL Adrenal panel 08/10/20 Range/Units 06:42 Sodium 136 L (137-145) mmol/L Potassium 3.0 L D (3.6-5.0) mmol/L Chloride 99.8 (98-107) mmol/L Carbon Dioxide 27 (22-30) mmol/L BUN 5 L (7-17) mg/dL Creatinine 0.4 L (0.6-1.2) mg/dL Glucose 132 H (65-100) mg/dL Calcium 8.8 (8.4-10.2) mg/dL Total Bilirubin 0.50 (0.1-1.2) mg/dL AST 15 (5-40) units/L ALT 14 (7-56) units/L Alkaline Phosphatase 86 (35-129) units/L Total Protein 6.9 (6.3-8.2) g/dL Albumin 2.9 L (3.9-5) g/dL - Imaging Chest x-ray: report reviewed, image reviewed CT scan - chest: report reviewed, image reviewed Assessment and Plan 24 yo F with loculated parapneumonic R pleural effusion, empyema Plan: 1. Follow up fluid cultures 2. continue IS/pulm toilet 3. IV abx 4. prn pain control 5. Recommend Thoracic surgery consultation. Fluid is loculated and not in communication. Large bore chest tube may not be sufficient to drain all of the fluid. Patient will likely need to be evaluated for VATs with decortication, pleurodesis. Discussed with Dr. Melendrez and Dr. Carlin Plan discussed with the patient. Indication for thoracic surgery evaluation discussed in detail. Patient understands and all questions answered. Plan is for patient to be transferred to [facility] where she has been accepted.
[2020-08-10 16:33] VITALS: BP 131/80
[2020-08-10] MEDS: VANCOMYCIN 1,500 MG in SODIUM CHLORIDE 0.9% 500 ML 500 ML IV SCH (17:00)
--- NOTE | 2020-08-10 17:49 | Discharge Summary ---
Providers - Providers Date of Admission: 08/08/20 14:40 Date of discharge: 08/10/20 Attending physician: SOBIA SHARMA 08/08/20 12:02 Consult to Physician [CONS] Urgent Comment: Consulting Provider: RADHA JOHNSON Physician Instructions: Reason For Exam: Pleural effusion, empyema? 08/09/20 07:50 Consult to Physician [CONS] Routine Comment: Consulting Provider: CORTNEY RUIZ Physician Instructions: Reason For Exam: Empyema 08/10/20 09:19 Consult to Physician [CONS] Routine Comment: Consulting Provider: MAYRA DELGADILLO Physician Instructions: Reason For Exam: complex pleural effusion Primary care physician: [facility] TECHNICAL ARCHITECT Hospitalization Condition: Stable Hospital course: 24 YO Female with Anemia presents to ED for evaluation. Patient reports "my chest feels tight". Patient states that she has experienced shortness of breath and chest discomfort over the past 5 days with persistent symptoms over the same timeframe. Patient reports mild chest pain which radiates to the right back. Patient reports pain is worsened with deep breathing. Patient knowledges dry cough. Patient transported to [facility] via private vehicle for further care and evaluation of the aforementioned symptoms. The patient was seen and evaluated in the emergency department. All lab and imaging studies reviewed. Patient u nderwent chest x-ray as well as CT scan of the chest which showed evidence of a right lower lobe pneumonia complicated by right pleural effusion and possible empyema as well as systemic inflammatory response syndrome. Patient admitted to medical floor and initiated on pneumonia protocol and treated with IV antibiotic therapy. Pulmonary team consulted in ED. Patient denies fever, chills, chest pain, palpitation, productive cough, skin rash, recent ill contacts, unilateral leg swelling, calf pain, individual/family history of DVT/PE/bleeding/blood clotting disorders, or known exposure to COVID-19. No prior admission for review. All medication listed at time of admission has been reconciled. Hospital course 08/09. Complains of pleuritic pain. Plan for ultrasound-guided thoracentesis. Patient may need a catheter placement. Pulmonology on board. Consulted ID for antibiotic management. 08/10. Patient had ultrasound-guided thoracentesis yesterday. Fluid-exudate. Remains on broad-spectrum antibiotics. ID on board. Patient had temperature 102 F overnight. Also has tachycardia. Repeat chest x-ray ordered. General surgery consulted for possible chest tube placement. Discussed with general surgery. Advised transfer to outside hospital for thoracic surgery services. Discussed with [facility] physician Dr Torres who agrees to accept patient for thoracic surgery services. Patient informed and she agrees with plan Disposition: DC/[place]- [facility] IP Final Discharge Diagnosis (Prints w/discharge instructions): Sepsis 2/2 Right PNA with possible empyema Time spent for discharge: 50 mins Core Measure Documentation - Palliative Care Palliative Care/ Comfort Measures: Not Applicable - Core Measures Any of the following diagnoses?: none Exam - Constitutional Vitals: Temp Pulse Resp BP Pulse Ox 98 F 111 H 93 H 131/80 94 08/10/20 16:32 08/10/20 16:32 08/10/20 16:32 08/10/20 16:32 08/10/20 16:00 Plan
--- NOTE | 2020-08-10 17:49 | Electrocardiograph Report ---
[facility] Test Date: 2020-08-08 Test Time: 07:34:42 Pat Name: KRIS DAVIS Department: Room: A384 Gender: F Financial Accounting Analyst: : 1995 Requested By: OFELIA GONZALES Order Number: [id number] Reading MD: Sindy Corado Measurements Intervals [place] Rate: 93 P: 22 MD: 151 QRS: 65 QRSD: 76 T: 0 QT: 365 QTc: 455 Interpretive Statements Sinus rhythm No previous ECG available for comparison Electronically Signed On 08-10-2020 17:49:08 EDT by Sindy Corado
[2020-08-13 08:26] LABS: HIV-1 Antibody Differentiation SEE SCANNED RESULT; HIV-2 Antibody Differentiation SEE SCANNED RESULT
== END 2020-08-10 18:21 | disposition short-term general hospital (02) | DRG 177 ==
LOC: ED 07:22 → 3A 14:40
PROVIDERS: ADMIT Internal Medicine; ATTEND Internal Medicine
PROC: 0W993ZZ Drainage of Right Pleural Cavity, Percutaneous Approach (ICD-10-PCS; principal; 2020-08-09)
DX: J86.9 Pyothorax without fistula (principal); J18.9 Pneumonia, unspecified organism; R65.10 Systemic inflammatory response syndrome (SIRS) of non-infectious origin without acute organ dysfunction; J90 Pleural effusion, not elsewhere classified; Z79.899 Other long term (current) drug therapy
CPT/HCPCS: 32555; 36415; 71045; 71046; 71275; 80053; 80307; 81001; 82140; 82947; 83605; 83735; 84145; 84160; 84484; 84703; 85007; 85025; 85379; 85610; 85730; 86140; 86689; 87040; 87116; 88112; 88305; 89051; 93005; 96365; 96375; G0378; J0696; J0780; J1956; J2270; J2405; J3370; J7030; J7040; Q9967